=== PATIENT | female | born 1990 | race African-American/Black ===

== ENCOUNTER 2022-12-04 23:01 | Emergency (ER) | payer MEDICAID, OTHER ==
[~2022-12-04] VITALS: Ht 172.7 cm; Wt 68.0 kg
[2022-12-04] MEDS ORDERED: SODIUM CHLORIDE 0.9% 1,000 ML IV ONE (23:45)
[2022-12-05 00:39] LABS: BASOPHILS % 0.9 % (0.0-2.0); EOSINOPHILS % 0.3 % (0.0-5.0); HEMATOCRIT. 40.1 % (36.0-48.0); HEMOGLOBIN. 13.6 g/dL (12.0-16.0); LYMPHOCYTES % 18.2 % (20.0-50.0); MEAN CORPUSCULAR HEMOGLOBIN 36.1 pg (28.0-32.0); MEAN CORPUSCULAR VOLUME 106.4 fL (81.0-99.0); MEAN PLATELET VOLUME 8.1 fl (7.4-10.4); MONOCYTES % 5.7 % (2.0-8.0); NEUTROPHILS % 74.9 % (40.0-76.0); PLATELET 138 x1000/uL (130-400); RED BLOOD CELL COUNT 3.77 mill/uL (4.2-5.4)
[2022-12-05 00:45] LABS: CHLORIDE 106 mEq/L (98-107)
[2022-12-05 00:58] LABS: ETHANOL BLOOD 608 mg/dL
[2022-12-05 01:12] LABS: HCG SCREEN NEGATIVE
[2022-12-05 06:00] VITALS: BP 124/81
[2022-12-09] MEDS ORDERED: MULT-1021 MT (16:43)
[2022-12-09] MEDS ORDERED: THIA100T72 PO (16:43)
[2022-12-09] MEDS ORDERED: FOLI-43 PO (16:43)
== END 2022-12-05 07:11 | disposition home or self-care (01) ==
LOC: EDBD 23:01 → ER 23:01
DX: F10.129 Alcohol abuse with intoxication, unspecified (principal); Y90.8 Blood alcohol level of 240 mg/100 ml or more
CPT/HCPCS: 36415; 80053; 80320; 84703; 85025; 93005; 96360; 99284; J7030; G0480

== ENCOUNTER 2024-03-14 13:18 | Emergency (ER) | payer OTHER ==
[~2024-03-14] VITALS: Ht 172.7 cm; Wt 77.5 kg
[~2024-03-14 13:18] MED LIST: FOLI-43 PO; MULT-1021 MT; THIA100T72 PO
[2024-03-14 13:20] VITALS: O2SAT 98
[2024-03-14] MEDS: ONDANSETRON HCL 4MG/2ML INJ IV STA (13:48)
[2024-03-14] MEDS: SODIUM CHLORIDE 0.9% 1,000 ML IV ONE (13:48)
[2024-03-14] MEDS: PANTOPRAZOLE SODIUM 40 MG/VIAL IV ONE (13:48)
[2024-03-14 14:02] LABS: BASOPHILS % 0.6 % (0.0-2.0); HEMATOCRIT. 43.1 % (36.0-48.0); HEMOGLOBIN. 14.4 g/dL (12.0-16.0); LYMPHOCYTES % 18.7 % (20.0-50.0); MEAN CORPUSCULAR HEMOGLOBIN 30.8 pg (28.0-32.0); MEAN CORPUSCULAR HGB CONC 33.5 g/dL (31.0-37.0); MEAN PLATELET VOLUME 8.2 fl (7.4-10.4); MONOCYTES % 4.4 % (2.0-8.0); NEUTROPHILS % 76.3 % (40.0-76.0); PLATELET 228 x1000/uL (130-400); RED BLOOD CELL COUNT 4.69 mill/uL (4.2-5.4); WHITE BLOOD COUNT 9.2 x1000/uL (4.5-11.0)
[2024-03-14 14:17] LABS: CHLORIDE 109 mEq/L (98-107); SODIUM 142 mEq/L (136-145)
[2024-03-14 14:18] LABS: CARBON DIOXIDE 17 mEq/L (21-32)
[2024-03-14 14:19] LABS: CALCIUM 8.4 mg/dL (8.7-10.4)
[2024-03-14 14:22] LABS: INR 0.9; PROTHROMBIN TIME 10.1 sec (9.6-11.0)
[2024-03-14 14:23] LABS: CREATININE 0.8 mg/dL (0.6-1.0); GLUCOSE 64 mg/dL (70-105); UREA NITROGEN BLOOD 11 mg/dL (9-23)
[2024-03-14 14:25] LABS: ALANINE AMINOTRANSFERASE 15 IU/L (10-49); ALBUMIN 4.6 g/dL (3.2-4.8); ASPARTATE AMINOTRANSFERASE 34 IU/L (<34)
[2024-03-14 14:26] LABS: BILIRUBIN TOTAL 0.9 mg/dL (0.1-1.0); PROTEIN TOTAL 8.2 g/dL (6.0-8.3)
[2024-03-14 14:31] LABS: HCG SCREEN NEGATIVE
[2024-03-14 14:33] LABS: ETHANOL BLOOD 318 mg/dL (<10)
[2024-03-14] MEDS ORDERED: PROT40 MT (15:05)
[2024-03-14] MEDS ORDERED: MAG-55 MT (15:05)
[2024-03-14] MEDS ORDERED: ONDA4TAB50 MT (15:05)
[2024-03-14 16:07] LABS: CLARITY URINE TURBID (CLEAR); COLOR URINE YELLOW (YELLOW); GLUCOSE URINE NEGATIVE (NEGATIVE); KETONES URINE 4+ (NEGATIVE); LEUKOCYTE ESTERASE URINE 1+ (NEGATIVE); NITRITE URINE NEGATIVE (NEGATIVE); OCCULT BLOOD URINE TRACE (NEGATIVE); PH URINE 5.5 (4.5-8.0); PROTEIN URINE 1+ (NEGATIVE); SPECIFIC GRAVITY URINE 1.021 (1.005-1.030); UROBILINOGEN URINE 0.2 E.U./dL (0.2-1.0)
[2024-03-14 16:21] VITALS: BP 125/85; PULSE 98; RESP 18; TEMP 98.6
[2024-03-14 16:22] LABS: SQUAMOUS EPITHELIAL CELL URINE 2+ /lpf (RARE/1+)
[2024-03-14 16:23] LABS: BACTERIA URINE 1+; TRICHOMONAS URINE 2+
== END 2024-03-14 16:27 | disposition home or self-care (01) ==
LOC: ER 13:18
DX: K29.70 Gastritis, unspecified, without bleeding (principal); F10.20 Alcohol dependence, uncomplicated; Z79.899 Other long term (current) drug therapy
CPT/HCPCS: 80053; 81003; 80320; 84703; 85025; 85610; 36415; 96374; 96375; 99284; J2405; C9113; J7030; Z7610 ×3; G0480

== ENCOUNTER 2024-11-20 18:44 | Emergency (ER) | payer OTHER ==
[~2024-11-20] VITALS: Ht 172.7 cm; Wt 79.3 kg
[~2024-11-20 18:44] MED LIST changes: +MAG-55 MT; +ONDA4TAB50 MT; +PROT40 MT
[2024-11-20 18:48] VITALS: BP 139/98; RESP 16; TEMP 98.2; O2SAT 98
[2024-11-20 18:49] VITALS: PULSE 70; O2SAT 99
== END 2024-11-20 22:35 | disposition home or self-care (01) ==
LOC: ER 18:44
DX: R00.2 Palpitations (principal); F10.90 Alcohol use, unspecified, uncomplicated; Z88.0 Allergy status to penicillin; Z79.899 Other long term (current) drug therapy; Y90.9 Presence of alcohol in blood, level not specified
CPT/HCPCS: 71045; 93005; 99283

== ENCOUNTER 2024-11-26 21:42 | Emergency (ER) | payer OTHER ==
[~2024-11-26] VITALS: Ht 170.2 cm; Wt 78.0 kg
[2024-11-26 21:45] VITALS: BP 142/72; PULSE 125; RESP 12; TEMP 98.7; O2SAT 100
[2024-11-26] MEDS ORDERED: SODIUM CHLORIDE 0.9% 1,000 ML IV ONE (22:00)
== END 2024-11-27 00:57 | disposition left against medical advice (07) ==
LOC: ER 21:42
DX: R00.2 Palpitations (principal); F10.129 Alcohol abuse with intoxication, unspecified; J45.909 Unspecified asthma, uncomplicated; Z79.899 Other long term (current) drug therapy; Z88.0 Allergy status to penicillin; V49.40XA Driver injured in collision with unspecified motor vehicles in traffic accident, initial encounter; Y93.89 Activity, other specified; Y92.89 Other specified places as the place of occurrence of the external cause; Y99.8 Other external cause status; Y90.9 Presence of alcohol in blood, level not specified
CPT/HCPCS: 99283; 93005; J7030